=== PATIENT | female | born 1985 | race Caucasian/White ===

== ENCOUNTER 2019-04-16 19:13 | Emergency (ER) | payer SELFPAY ==
[~2019-04-16] VITALS: Ht 165.1 cm; Wt 62.6 kg
[2019-04-16 19:35] VITALS: BP 123/71
[2019-04-16] MEDS ORDERED: IBUP-1060 PO (19:49)
--- NOTE | 2019-04-16 19:49 | PHYS DOC ---
Past Medical History Past Medical History: Kidney Stone Past Surgical History: Additional Past Surgical Histo: ectopic , Alcohol Use: Occasionally Drug Use: Marijuana Adult General Chief Complaint Chief Complaint: MENSTRUAL PAIN/CRAMPS HPI HPI Patient is a 33 year old female who presents with currently on her menstrual period and having cramps that at times wraparound to her back. Patient currently rates her pain a 7 out of 10. Patient states she's been taking Advil for her pain. Patient states she had a baby 18 months ago and has not followed up with her OB. Review of Systems Review of Systems GI: bilateral and mid lower abdominal pain, denies nausea, vomiting, bloody stools or diarrhea [] All other systems were reviewed and found to be within normal limits, except as documented in this note. Allergies Allergies Allergies Coded Allergies Type Severity Reaction Last Updated Verified Penicillins Allergy Intermediate 09/22/14 No Sulfa (Sulfonamide Antibiotics) Allergy Intermediate 09/22/14 No codeine Allergy Intermediate 09/22/14 No Physical Exam Physical Exam Constitutional: Well developed, well nourished, no acute distress, non-toxic appearance. [] Abdomen: Bowel sounds normal, soft, no tenderness, no masses, no pulsatile masses. [] Skin: Warm, dry, no erythema, no rash. [] Back: No tenderness, no CVA tenderness. [] Neurologic: Alert and oriented X 3, normal motor function, normal sensory f unction, no focal deficits noted. [] Psychologic: Affect normal, judgement normal, mood normal. [] Current Patient Data Vital Signs Vital Signs Date Time Temp Pulse Resp B/P (MAP) Pulse Ox O2 Delivery O2 Flow Rate FiO2 04/16/19 19:35 98.0 60 16 123/71 (88) 97 Room Air 98.0 Lab Values Laboratory Tests Test 04/16/19 20:01 04/16/19 20:08 POC Urine HCG, Qualitative Hcg negative (Negative) Urine Collection Type Unknown Urine Color Yellow Urine Clarity Cloudy Urine pH 5.5 Urine Specific [place] >=1.030 Urine Protein 30 mg/dL (NEG-TRACE) Urine Glucose (UA) Negative mg/dL (NEG) Urine Ketones (Stick) Negative mg/dL (NEG) Urine Blood Large (NEG) Urine Nitrite Negative (NEG) Urine Bilirubin Small (NEG) Urine Urobilinogen Dipstick 1.0 mg/dL (0.2 mg/dL) Urine Leukocyte Esterase Small (NEG) Urine RBC 11-20 /HPF (0-2) Urine WBC 11-20 /HPF (0-4) Urine Squamous Epithelial Cells Many /LPF Urine Amorphous Sediment Present /HPF Urine Bacteria Few /HPF (0-FEW) Urine Mucus Marked /LPF EKG EKG [] Radiology/Procedures Radiology/Procedures [] Course & Med Decision Making Course & Med Decision Making Patient is a 33 year old female who presents with currently on her menstrual period and having cramps that at times wrap around to her back. Patient currently rates her pain a 7 out of 10. Patient states she's been taking Advil for her pain. Patient states she had a baby 18 months ago and has not followed up with her OB. Denies dysuria pain, abdomen is soft and nontender. Patient denies nausea, vomiting, diarrhea, constipation, heavy bleeding, bleeding with clots, dizziness, headache. Patient is told to take ibuprofen or Advil and use a heating pad. Patient is to follow-up with her OB doctor. Dragon Disclaimer Dragon Disclaimer This electronic medical record was generated, in whole or in part, using a voice recognition dictation system. Departure Departure Impression: Primary Impression: Menstrual cramp Additional Impression: UTI (urinary tract infection) Disposition: 01 HOME, SELF-CARE Condition: STABLE Referrals: NON,STAFF (PCP) Patient Instructions: Muscle Cramps, Urinary Tract Infection Additional Instructions: Follow up with OB. Use Ibuprofen and a heating pad. Scripts Nitrofurantoin Monohyd/M-Cryst (MACROBID 100 MG CAPSULE) 100 Mg Capsule 1 CAP PO BID for 7 Days, #14 CAP 0 Refills Prov: LAMAR ZARAGOZA APRN 04/16/19 Ibuprofen (IBUPROFEN) 800 Mg Tablet 800 MG PO PRN Q6HRS PRN for INFLAMMATION, #20 TAB Prov: LAMAR ZARAGOZA APRN 04/16/19 Problem Qualifiers Additional Impression: UTI (urinary tract infection) Urinary tract infection type: site unspecified Hematuria presence: with hematuria Qualified Codes: N39.0 - Urinary tract infection, site not specified; R31.9 - Hematuria, unspecified LAMAR ZARAGOZA APRN Apr 16, 2019 19:49
[2019-04-16 20:14] LABS: BILIRUBIN,URINE SMALL (NEG); CLARITY,URINE CLOUDY; COLOR,URINE YELLOW; NITRITE,URINE NEGATIVE (NEG); PH,URINE 5.5; PROTEIN,URINE 30 mg/dL (NEG-TRACE)
[2019-04-16 20:20] LABS: SQUAMOUS EPITHELIAL CELL,UR MANY /LPF
[2019-04-16 20:21] LABS: AMORPHOUS SEDIMENT,UR PRESENT /HPF; BACTERIA,URINE FEW /HPF (0-FEW)
[2019-04-16] MEDS ORDERED: NITR100C62 PO (20:26)
== END 2019-04-16 20:36 | disposition home or self-care (01) ==
LOC: ER 19:13
DX: N94.6 Dysmenorrhea, unspecified (principal); N39.0 Urinary tract infection, site not specified; R31.9 Hematuria, unspecified; Z87.442 Personal history of urinary calculi; Z88.0 Allergy status to penicillin; Z88.2 Allergy status to sulfonamides; Z88.5 Allergy status to narcotic agent
CPT/HCPCS: 81001; 81025; 87086; 87186; 99284

== ENCOUNTER 2020-12-02 17:04 | Emergency (ER) | payer OTHER ==
[~2020-12-02] VITALS: Ht 165.1 cm; Wt 60.0 kg
[~2020-12-02 17:04] MED LIST: IBUP-1060 PO; NITR100C62 PO
[2020-12-02 18:01] VITALS: BP 136/87
[2020-12-02 18:06] LABS: BILIRUBIN,URINE NEGATIVE (NEG); CLARITY,URINE CLEAR; COLOR,URINE YELLOW; NITRITE,URINE POSITIVE (NEG); PH,URINE 5.5 (<5.0-8.0); PROTEIN,URINE NEGATIVE (NEG-TRACE)
[2020-12-02 18:21] LABS: U PREG PATIENT NEGATIVE (NEG)
[2020-12-02 18:27] LABS: BACTERIA,URINE MANY /HPF (0-FEW); RBC,URINE 0 /HPF (0-2); WBC,URINE TNTC /HPF (0-4)
--- NOTE | 2020-12-02 19:33 | RAD ---
Three-view left rib detail series and PA view chest x-ray Clinical indications: Left posterior rib pain after work injury November 24, 2020. FINDINGS: No acute left rib fractures are evident. Chest x-ray demonstrates no acute lung infiltrate or pleural effusion or pulmonary edema or pneumotho rax. The heart size and pulmonary vasculature and mediastinum and both nydia are unremarkable. Mild sc oliosis is seen. IMPRESSION: No acute left rib fracture. Electronically signed by: Nayan Elizabeth MD (12/02/2020 7:30 PM) [id number]
--- NOTE | 2020-12-02 19:52 | RAD ---
Indications: Posterior left rib pain after work injury November 24, 2020. Three-view lumbar spine series: No compression fracture or discitis or lytic process is evident. Levo scoliosis is seen. Transverse processes are intact. No anterolisthesis is seen. Thoracic spine: Mild compression deformity of T8. No lytic process or discitis is seen. There is mild scoliosis present. IMPRESSION: Mild compression fracture of T8 of indeterminate age. Electronically signed by: Nayan Elizabeth MD (12/02/2020 7:49 PM) [id number]
[2020-12-02] MEDS ORDERED: HYDR-2761 PO (19:58)
--- NOTE | 2020-12-02 19:59 | ED.ADGEN ---
Past Medical History Past Medical History: No Pertinent History, Kidney Stone Past Surgical History: Additional Past Surgical Histo: ectopic , TUBE REMOVAL Smoking Status: Former Smoker Alcohol Use: Occasionally Drug Use: Marijuana General Adult EDM: Chief Complaint: BACK INJURY HPI: HPI: Patient is a 35 year old AA male who presents emergency department with complaints of back pain and left rib pain since November 24, 2020. Patient states that she was working when a pallet fell on top of her and knocked her to the ground. Patient states she has not been evaluated for the injury yet. She denies any shortness of breath, cough, hemoptysis, saddle anesthesia, loss of bowel/bladder control, abdominal pain, nausea, vomiting, dysuria, hematuria, numbness, tingling, or weakness. Denies any loss of consciousness, neck, or head pain. Patient currently rates her pain a 7 out of 10 on pain scale, she describes it as a constant burning sensation in her mid back and left ribs and pain in her low back. She denies any alleviating factors, pain is worse with movement. Review of Systems: Review of Systems: Complete ROS is negative unless otherwise noted in HPI. Allergies: Allergies: Allergies Coded Allergies Type Severity Reaction Last Updated Verified Penicillins Allergy Intermediate 09/22/14 No Sulfa (Sulfonamide Antibiotics) Allergy Intermediate 09/22/14 No codeine Allergy Intermediate 09/22/14 No Physical Exam: PE: See Above Constitutional: Well developed, well nourished, no acute distress, non-toxic appearance. [] HENT: Normocephalic, atraumatic, bilateral external ears normal, nose normal. [] Eyes: PERRLA, EOMI, conjunctiva normal, no discharge. [] Neck: Normal range of motion, no stridor. [] Cardiovascular:Heart rate regular rhythm Lungs & Thorax: Respirations even and unlabored, no retractions, no respiratory distress; lateral left and posterior left rib pain, no subcutaneous emphysema, no crepitus Abdomen: soft, no tenderness Back: Lower thoracic and diffuse lumbar tenderness to palpation, no step-off, no crepitus, no obvious deformity; bilateral paraspinal lumbar tenderness to palpation; negative straight leg lift bilaterally Skin: Warm, dry, no erythema, no rash. [] Extremities: No cyanosis, ROM intact, no edema. [] Neurologic: Alert and oriented X 3, normal motor, normal sensory, no focal deficits noted. [] Psychologic: Affect normal, judgement normal, mood normal. [] Current Patient Data: Labs: Laboratory Tests Test 12/02/20 17:48 Urine Collection Type Unknown Urine Color Yellow Urine Clarity Clear Urine pH 5.5 (<5.0-8.0) Urine Specific [place] 1.025 (1.000-1.030) Urine Protein Negative mg/dL (NEG-TRACE) Urine Glucose (UA) Negative mg/dL (NEG) Urine Ketones (Stick) Negative mg/dL (NEG) Urine Blood Large (NEG) Urine Nitrite Positive (NEG) Urine Bilirubin Negative (NEG) Urine Urobilinogen Dipstick 1.0 mg/dL (0.2 mg/dL) Urine Leukocyte Esterase Large (NEG) Urine RBC 0 /HPF (0-2) Urine WBC Tntc /HPF (0-4) Urine Squamous Epithelial Cells Mod /LPF Urine Bacteria Many /HPF (0-FEW) Urine Mucus Marked /LPF Urine Test Negative (NEG) Vital Signs: Vital Signs Date Time Temp Pulse Resp B/P (MAP) Pulse Ox O2 Delivery O2 Flow Rate FiO2 12/02/20 18:01 98.7 94 17 136/87 (103) 99 Room Air 98.7 EKG: EKG: [] Heart Score: C/O Chest Pain: No Radiology/Procedures: Radiology/Procedures: PROCEDURE: RIBS LEFT AND PA CHEST Three-view left rib detail series and PA view chest x-ray Clinical indications: Left posterior rib pain after work injury November 24, 2020. FINDINGS: No acute left rib fractures are evident. Chest x-ray demonstrates no acute lung infiltrate or pleural effusion or pulmonary edema or pneumothorax. The heart size and pulmonary vasculature and mediastinum and both nydia are unremarkable. Mild scoliosis is seen. IMPRESSION: No acute left rib fracture. Electronically signed by: Nayan Elizabeth MD (12/02/2020 7:30 PM) [id number][] PROCEDURE: THORACIC SPINE 3V Indications: Posterior left rib pain after work injury November 24, 2020. Three-view lumbar spine series: No compression fracture or discitis or lytic process is evident. Levoscoliosis is seen. Transverse processes are intact. No anterolisthesis is seen. Thoracic spine: Mild compression deformity of T8. No lytic process or discitis is seen. There is mild scoliosis present. IMPRESSION: Mild compression fracture of T8 of indeterminate age. Electronically signed by: Nayan Elizabeth MD (12/02/2020 7:49 PM) [id number] Course & Med Decision Making: Course & Med Decision Making Pertinent Labs and Imaging studies reviewed. (See chart for details) [] Dragon Disclaimer: Dragon Disclaimer: This electronic medical record was generated, in whole or in part, using a voice recognition dictation system. Departure Departure Impression: Primary Impression: Thoracic compression fracture Disposition: HOME / SELF CARE / HOMELESS Condition: STABLE Referrals: NO PCP (PCP) KAYLYN SWEENEY MD Patient Instructions: Back, Compression Fracture Additional Instructions: Fill the prescription and take as directed. Follow up with Dr. Sweeney this week and your workman's comp physician. Return to the ER if symptoms worsen or fever develops. Scripts Hydrocodone Bit/Acetaminophen (HYDROCODONE-APAP 5-325 ) 1 Tab Tablet 1 TAB PO PRN Q6HRS PRN for PAIN for 5 Days, #20 TAB 0 Refills Prov: NURIS MORAN APRN 12/02/20 Problem Qualifiers Primary Impression: Thoracic compression fracture Encounter type: initial encounter Thoracic vertebra fracture level: T8 Qualified Codes: S22.060A - Wedge compression fracture of T7-t8 vertebra, initial encounter for closed fracture NURIS MORAN APRN December 02, 2020 19:59
== END 2020-12-02 20:12 | disposition home or self-care (01) ==
LOC: ER 17:04
DX: S22.060A Wedge compression fracture of T7-T8 vertebra, initial encounter for closed fracture (principal); M54.5 Low back pain; R07.81 Pleurodynia; Z87.891 Personal history of nicotine dependence; Z88.0 Allergy status to penicillin; Z88.2 Allergy status to sulfonamides; Z88.5 Allergy status to narcotic agent; W18.39XA Other fall on same level, initial encounter; Y93.89 Activity, other specified; Y92.69 Other specified industrial and construction area as the place of occurrence of the external cause; Y99.0 Civilian activity done for income or pay
CPT/HCPCS: 71101; 72072; 72100; 81001; 81025; 87086; 99284